=== PATIENT | male | born 1940 | race Hispanic/Latino ===

== ENCOUNTER 2019-02-27 13:37 | Observation (INO) | payer MEDICARE ==
--- NOTE | 2019-02-27 14:59 | Cat Scan Report ---
NONENHANCED CT SCAN OF THE HEAD: INDICATION / CLINICAL INFORMATION: 78 years Male; fall, w/ head laceration, LOC. TECHNIQUE: Routine CT head without contrast. All CT scans at this location are performed using CT dos e reduction for ALARA by means of automated exposure control. COMPARISON: None. FINDINGS: BRAIN / INTRACRANIAL CONTENTS: I do not see intracranial sequela from the trauma. I do not see scalp hematoma air-fluid level in the visualized portions of the paranasal sinuses. No acute hemorrhage, mass effect, midline shift, hydrocephalus, or acute, large territorial infarct. No chronic infarct or focal atrophy. Periventricular low density areas are seen due to microvascular faint angiopathy. Low density areas are also seen in the deep hemispheric white matter due to microv ascular faint angiopathy. CRANIOCERVICAL JUNCTION: No significant abnormality. ORBITS: No significant abnormality of visualized orbits. SINUSES / MASTOIDS: Mucosal thickening is seen posterior inferior cells on the right side ADDITIONAL FINDINGS: None. IMPRESSION: I do not see intracranial sequela from the trauma. Signer Name: Shekhar Roman MD Signed: 02/27/2019 2:55 PM Workstation Name: [id number]
[2019-02-27 15:21] LABS: Basophils # (Auto) 0.1 K/mm3 (0.0-0.1); Basophils % (Auto) 0.6 % (0.0-1.8); Eosinophils # (Auto) 0.2 K/mm3 (0.0-0.4); Eosinophils % (Auto) 2.5 % (0.0-4.3); Hematocrit 38.1 % (35.5-45.6); Hemoglobin 13.2 gm/dl (11.8-15.2); Lymphocytes % (Auto) 10.2 % (13.4-35.0); Mean Corpuscular HGB Conc 35 % (32-34); Mean Corpuscular Volume 93 fl (84-94); Monocytes # (Auto) 0.7 K/mm3 (0.0-0.8); Monocytes % (Auto) 7.6 % (0.0-7.3); Platelet Count 164 K/mm3 (140-440); Red Blood Count 4.09 M/mm3 (3.65-5.03); Red Cell Distribution Width 14.7 % (13.2-15.2)
[2019-02-27 15:32] LABS: INR 0.99 (0.87-1.13); Partial Thromboplastin Time 27.6 Sec. (24.2-36.6)
[2019-02-27 15:40] LABS: Alanine Aminotransferase 19 units/L (7-56); Albumin 4.4 g/dL (3.9-5); BUN/Creatinine Ratio 18; Blood Urea Nitrogen 25 mg/dL (9-20); Calcium 9.5 mg/dL (8.4-10.2); Hemolysis Index 30
[2019-02-27] MEDS ORDERED: SODIUM CHLORIDE 0.9% 500 ML 500 ML IV ONE (15:40)
[2019-02-27] MEDS ORDERED: TETANUS,DIPH,PERTUSS(ACELL) VACCINE 0.5 ML SYRINGE IM ONE (15:40)
[2019-02-27] MEDS ORDERED: BACITRACIN ZINC OINT 28.4 GM TP STA (15:43)
[2019-02-27] MEDS ORDERED: ACETAMINOPHEN 500 MG TAB PO ONE (16:27)
[2019-02-27 16:34] LABS: Bilirubin,Urine NEG (Negative); Blood,Urine NEG (Negative); Color,Urine Yellow (Yellow); Mucus,Urine FEW /HPF; Protein,Urine <15 mg/dL mg/dL (Negative); Urobilinogen,Urine < 2.0 mg/dL (<2.0)
[2019-02-27] MEDS ORDERED: LIDOCAINE-MPF (1%) 10 MG/1 ML VIAL 5 ML INFILTRATI ONE (16:35)
--- NOTE | 2019-02-27 17:11 | Emergency Department Report ---
<INDIRA CONTEH - Last Filed: 02/27/19 17:18> ED General Adult HPI - General Chief complaint: Syncope Stated complaint: SYNCOPY/HYPOTENSION Time Seen by Provider: 02/27/19 14:54 - Related Data Home Medications Medication Instructions Recorded Confirmed Last Taken Aspirin 81 mg PO DAILY 07/05/14 07/16/14 07/16/14 81 mg Chlorthalidone [Thalitone] 12.5 mg PO DAILY 07/05/14 07/16/14 07/16/14 12.5mg Lisinopril 40 mg PO DAILY 07/05/14 07/16/14 07/16/14 40 mg Nitroglycerin [Nitrostat] 0.4 mg SL PRN PRN 07/05/14 07/16/14 Unknown Pravastatin [Pravachol] 80 mg PO DAILY 07/05/14 07/16/14 07/16/14 80 mg Ranolazine [Ranexa] 500 mg PO DAILY 07/05/14 07/16/14 07/16/14 500 mg amLODIPine 10 mg PO DAILY 07/05/14 07/16/14 07/16/14 10 mg carvediloL [Coreg] 25 mg PO BID 07/05/14 07/16/14 07/16/14 25 mg Previous Rx's Medication Instructions Recorded Last Taken Type Prasugrel [Effient] 10 mg PO QDAY #30 tablet 07/06/14 07/16/14 Rx 10 mg Allergies Allergy/AdvReac Type Severity Reaction Status Date / Time No Known Allergies Allergy Verified 07/05/14 06:49 ED Past Medical Hx - Medications Home Medications: Home Medications Medication Instructions Recorded Confirmed Last Taken Type Aspirin 81 mg PO DAILY 07/05/14 07/16/14 07/16/14 History 81 mg Chlorthalidone [Thalitone] 12.5 mg PO DAILY 07/05/14 07/16/14 07/16/14 History 12.5mg Lisinopril 40 mg PO DAILY 07/05/14 07/16/14 07/16/14 History 40 mg Nitroglycerin [Nitrostat] 0.4 mg SL PRN PRN 07/05/14 07/16/14 Unknown History Pravastatin [Pravachol] 80 mg PO DAILY 07/05/14 07/16/14 07/16/14 History 80 mg Ranolazine [Ranexa] 500 mg PO DAILY 07/05/14 07/16/14 07/16/14 History 500 mg amLODIPine 10 mg PO DAILY 07/05/14 07/16/14 07/16/14 History 10 mg carvediloL [Coreg] 25 mg PO BID 07/05/14 07/16/14 07/16/14 History 25 mg Prasugrel [Effient] 10 mg PO QDAY #30 tablet 07/06/14 07/16/14 07/16/14 Rx 10 mg - Laceration /Wound Repair Upper Face Wound Location: face (right eyebrow) Wound Length (cm): 2 Wound's Depth, Shape: into muscle, linear Wound Explored: contaminated Irrigated w/ Saline (ccs): 60 Betadine Prep?: Yes Anesthesia: 1% Lidocaine Volume Anesthetic (ccs): 2 Wound Debrided: minimal Wound Repaired With: sutures Suture Size/Type: 4:0 Number of Sutures: 3 Layer Closure?: No Sterile Dressing Applied?: Yes Progress: Patient tolerated procedure well ED Medical Decision Making - Lab Data Result diagrams: 02/27/19 14:58 02/27/19 14:58 ED Disposition Clinical Impression: Syncope, Facial laceration, Abrasion of left arm, Dehydration Disposition: OP ADMIT IP TO THIS HOSP Condition: Stable Instructions: Syncope (ED) Referrals: PRIMARY CARE, [Referring] - 3-5 Days <LILY HANCOCK - Last Filed: 02/27/19 20:09> ED General Adult HPI - General Source: patient, family, EMS (my EMS disclaimed), RN notes reviewed, old records reviewed Mode of arrival: Ambulatory Limitations: No Limitations - History of Present Illness Initial comments: Cardiology: Dr. Dariusz Lewis Past medical history: Heart disease, status post bypass, high cholesterol and hypertension The patient is a 78-year-old gentleman. The patient is not known to this provider previously. Patient is brought to the hospital with family after unprovoked syncope. Patient states he was in his usual state of health, eating lunch outside, when he lost consciousness and hit his right forehead. Prior to the event, he is not having any new or different symptoms. The patient further states that he has chronic dysphasia, but this is not new, worsening or different. He has mild frontal headache. There is no midline neck pain. He denies DVT and pulmonary embolism risk factors. He's not had an episode of loss of consciousness recently that he can recall otherwise. He is not sure of a previous tetanus vaccinations. Admits to left upper extremity abrasion from a few days ago. There is no complaint of midline neck pain, shortness of breath, abdominal pain, urinary symptoms. He denies hematemesis and bright red blood per rectum. -: Sudden Location: head, left, upper extremity Severity scale (0 -10): 8 Consistency: now resolved Improves with: none Worsens with: none ED Review of Systems ROS: Stated complaint: SYNCOPY/HYPOTENSION Other details as noted in HPI Constitutional: denies: fever Eyes: denies: eye discharge ENT: denies: congestion Respiratory: denies: wheezing Cardiovascular: syncope. denies: chest pain Gastrointestinal: other. denies: abdominal pain, nausea, vomiting, constipation, hematemesis, melena, hematochezia Genitourinary: denies: dysuria Musculoskeletal: myalgia Skin: lesions Neurological: denies: weakness Hematological/Lymphatic: easy bleeding ED Past Medical Hx - Past Medical History Previous Medical History?: Yes Hx Hypertension: Yes (2008) Hx Heart Attack/AMI: Yes Hx Congestive Heart Failure: Yes Hx GERD: Yes Hx Arthritis: Yes Hx Kidney Stones: Yes (surgery ) Hx HIV: No - Surgical History Past Surgical History?: Yes Hx Coronary Stent: Yes (07/12/14) Hx Appendectomy: Yes (1959) - Social History Smoking Status: Never Smoker Substance Use Type: None ED Physical Exam - General Limitations: No Limitations General appearance: alert, in no apparent distress - Head Head exam: Present: normocephalic, other (there is a right-sided 2 cm supraorbital laceration.) - Eye Eye exam: Present: normal appearance, PERRL, EOMI, other (visual acuity intact to finger counting and color perception at a closest). Absent: nystagmus - ENT ENT exam: Present: normal exam, normal orophraynx, mucous membranes moist, normal external ear exam - Neck Neck exam: Present: normal inspection, full ROM. Absent: tenderness, meningismus - Respiratory Respiratory exam: Present: normal lung sounds bilaterally. Absent: respiratory distress - Cardiovascular Cardiovascular Exam: Present: regular rate, normal rhythm, normal heart sounds. Absent: bradycardia, tachycardia, irregular rhythm, systolic murmur, diastolic murmur, rubs, gallop - GI/Abdominal GI/Abdominal exam: Present: soft. Absent: distended, tenderness, guarding, rebound, rigid, pulsatile mass - Rectal Rectal exam: Present: deferred - Extremities Exam Extremities exam: Present: full ROM, pedal edema (1+ edema bilateral lower extremities. There is no palpable cord. There is negative Homans sign.), other (2+ pulses noted in the bilateral upper and lower extremities. The muscular compartments are soft. The pelvis is stable.). Absent: normal inspection (there is a fit superficial left upper extremity forearm abrasion/skin avulsion.), calf tenderness - Back Exam Back exam: Present: normal inspection. Absent: tenderness, CVA tenderness (R), CVA tenderness (L), paraspinal tenderness, vertebral tenderness - Neurological Exam Neurological exam: Present: alert, oriented X3, normal gait, other (there is no facial droop. The tongue is midline. The extraocular movements are intact bilaterally. ). Absent: motor sensory deficit - Skin Skin exam: Present: warm, ecchymosis ED Course Vital Signs 02/27/19 02/27/19 02/27/19 14:10 15:25 15:58 Temperature 97.4 F L Pulse Rate 66 66 65 Respiratory 16 18 16 Rate Blood Pressure 118/59 89/40 94/50 [Left] O2 Sat by Pulse 100 97 100 Oximetry 02/27/19 02/27/19 17:43 18:17 Temperature Pulse Rate 63 67 Respiratory 16 14 Rate Blood Pressure 105/47 104/58 [Left] O2 Sat by Pulse 95 95 Oximetry - Reevaluation(s) Reevaluation #1: 02/27/19 17:43 Differential diagnosis, including but not limited to: Orthostasis, vagal event, structural cardiac disease, superficial laceration, forearm abrasion, pulmonary embolism, dehydration Assessment and plan: 78-year-old gentleman, pleasant, sober, calm and cooperative, no pulmonary embolism or DVT risk factors, low risk by well's criteria, found to be initially hypotensive during my history and physical, blood pressure in the mid 90s, oxygen 94% on room air. He is clinically sober at this time, CT scan of the brain negative for acute disease, laboratory studies reviewed and appreciated, may have mild dehydration, and/or viral depletion. He is on a number of blood pressure medications which have not been recently changed or adjusted. D-dimer elevated, CT scan of the tests ordered, IV fluids ordered, tetanus vaccination ordered, left upper extremity ecchymosis and abrasion was dressed by nursing team, discussed with covering lab courier, Dr. Coe and Nichelle, both of whom work with the patient's primary lab courier, we discussed plan of care for admission, family verbalizes understanding, CT scan of the chest is pending interpretation at this time. Reevaluation #2: 02/27/19 19:49 CT scan chest negative for acute disease. Patient resting comfortably, and in no acute distress. Vital signs improved. He is amenable to hospitalization. The Hospital physician is paged to arrange admission. Reevaluation #3: 02/27/19 20:09 d/w RIGGING WORKER Anthony Brewer who accepts to medical service ED Medical Decision Making - Lab Data Result diagrams: 02/27/19 14:58 02/27/19 14:58 Vital Signs 02/27/19 02/27/19 02/27/19 14:10 15:25 15:58 Temperature 97.4 F L Pulse Rate 66 66 65 Respiratory 16 18 16 Rate Blood Pressure 118/59 89/40 94/50 [Left] O2 Sat by Pulse 100 97 100 Oximetry 02/27/19 17:43 Temperature Pulse Rate 63 Respiratory 16 Rate Blood Pressure 105/47 [Left] O2 Sat by Pulse 95 Oximetry Temp Pulse Resp BP Pulse Ox 97.4 F L 63 16 105/47 95 02/27/19 14:10 02/27/19 17:43 02/27/19 17:43 02/27/19 17:43 02/27/19 17:43 Lab Results 02/27/19 02/27/19 02/27/19 Range/Units 14:58 14:58 14:58 WBC 9.6 (4.5-11.0) K/mm3 RBC 4.09 (3.65-5.03) M/mm3 Hgb 13.2 (11.8-15.2) gm/dl Hct 38.1 (35.5-45.6) % MCV 93 (84-94) fl MCH 32 (28-32) pg MCHC 35 H (32-34) % RDW 14.7 (13.2-15.2) % Plt Count 164 (140-440) K/mm3 Lymph % (Auto) 10.2 L (13.4-35.0) % [place] % (Auto) 7.6 H (0.0-7.3) % Eos % (Auto) 2.5 (0.0-4.3) % Baso % (Auto) 0.6 (0.0-1.8) % Lymph # 1.0 L (1.2-5.4) K/mm3 [place] # 0.7 (0.0-0.8) K/mm3 Eos # 0.2 (0.0-0.4) K/mm3 Baso # 0.1 (0.0-0.1) K/mm3 Seg Neutrophils % 79.1 H (40.0-70.0) % Seg Neutrophils # 7.6 (1.8-7.7) K/mm3 PT 13.0 (12.2-14.9) Sec. INR 0.99 (0.87-1.13) APTT 27.6 (24.2-36.6) Sec. D-Dimer (0-234) ng/mlDDU Sodium 141 (137-145) mmol/L Potassium 4.3 (3.6-5.0) mmol/L Chloride 103.5 (98-107) mmol/L Carbon Dioxide 24 (22-30) mmol/L Anion Gap 18 mmol/L BUN 25 H (9-20) mg/dL Creatinine 1.4 (0.8-1.5) mg/dL Estimated GFR 49 ml/min BUN/Creatinine Ratio 18 % Glucose 129 H (75-100) mg/dL Calcium 9.5 (8.4-10.2) mg/dL Magnesium (1.7-2.3) mg/dL Total Bilirubin 0.40 (0.1-1.2) mg/dL AST 20 (5-40) units/L ALT 19 (7-56) units/L Alkaline Phosphatase 51 (35-129) units/L Total Creatine Kinase (55-170) units/L Troponin T < 0.010 (0.00-0.029) ng/mL Total Protein 6.5 (6.3-8.2) g/dL Albumin 4.4 (3.9-5) g/dL Albumin/Globulin Ratio 2.1 % TSH (0.270-4.200) mlU/mL Urine Color (Yellow) Urine Turbidity (Clear) Urine pH (5.0-7.0) Ur Specific [place] (1.003-1.030) Urine Protein (Negative) mg/dL Urine Glucose (UA) (Negative) mg/dL Urine Ketones (Negative) mg/dL Urine Blood (Negative) Urine Nitrite (Negative) Urine Bilirubin (Negative) Urine Urobilinogen (<2.0) mg/dL Ur Leukocyte Esterase (Negative) Urine WBC (Auto) (0.0-6.0) /HPF Urine RBC (Auto) (0.0-6.0) /HPF Urine Mucus /HPF Salicylates (2.8-20.0) mg/dL Acetaminophen (10.0-30.0) ug/mL 02/27/19 02/27/19 02/27/19 Range/Units 15:53 15:53 15:53 WBC (4.5-11.0) K/mm3 RBC (3.65-5.03) M/mm3 Hgb (11.8-15.2) gm/dl Hct (35.5-45.6) % MCV (84-94) fl MCH (28-32) pg MCHC (32-34) % RDW (13.2-15.2) % Plt Count (140-440) K/mm3 Lymph % (Auto) (13.4-35.0) % [place] % (Auto) (0.0-7.3) % Eos % (Auto) (0.0-4.3) % Baso % (Auto) (0.0-1.8) % Lymph # (1.2-5.4) K/mm3 [place] # (0.0-0.8) K/mm3 Eos # (0.0-0.4) K/mm3 Baso # (0.0-0.1) K/mm3 Seg Neutrophils % (40.0-70.0) % Seg Neutrophils # (1.8-7.7) K/mm3 PT (12.2-14.9) Sec. INR (0.87-1.13) APTT (24.2-36.6) Sec. D-Dimer 326.09 H (0-234) ng/mlDDU Sodium (137-145) mmol/L Potassium (3.6-5.0) mmol/L Chloride (98-107) mmol/L Carbon Dioxide (22-30) mmol/L Anion Gap mmol/L BUN (9-20) mg/dL Creatinine (0.8-1.5) mg/dL Estimated GFR ml/min BUN/Creatinine Ratio % Glucose (75-100) mg/dL Calcium (8.4-10.2) mg/dL Magnesium 1.90 (1.7-2.3) mg/dL Total Bilirubin (0.1-1.2) mg/dL AST (5-40) units/L ALT (7-56) units/L Alkaline Phosphatase (35-129) units/L Total Creatine Kinase 163 (55-170) units/L Troponin T (0.00-0.029) ng/mL Total Protein (6.3-8.2) g/dL Albumin (3.9-5) g/dL Albumin/Globulin Ratio % TSH 3.240 (0.270-4.200) mlU/mL Urine Color (Yellow) Urine Turbidity (Clear) Urine pH (5.0-7.0) Ur Specific [place] (1.003-1.030) Urine Protein (Negative) mg/dL Urine Glucose (UA) (Negative) mg/dL Urine Ketones (Negative) mg/dL Urine Blood (Negative) Urine Nitrite (Negative) Urine Bilirubin (Negative) Urine Urobilinogen (<2.0) mg/dL Ur Leukocyte Esterase (Negative) Urine WBC (Auto) (0.0-6.0) /HPF Urine RBC (Auto) (0.0-6.0) /HPF Urine Mucus /HPF Salicylates (2.8-20.0) mg/dL Acetaminophen (10.0-30.0) ug/mL 02/27/19 02/27/19 02/27/19 Range/Units 15:53 15:53 15:58 WBC (4.5-11.0) K/mm3 RBC (3.65-5.03) M/mm3 Hgb (11.8-15.2) gm/dl Hct (35.5-45.6) % MCV (84-94) fl MCH (28-32) pg MCHC (32-34) % RDW (13.2-15.2) % Plt Count (140-440) K/mm3 Lymph % (Auto) (13.4-35.0) % [place] % (Auto) (0.0-7.3) % Eos % (Auto) (0.0-4.3) % Baso % (Auto) (0.0-1.8) % Lymph # (1.2-5.4) K/mm3 [place] # (0.0-0.8) K/mm3 Eos # (0.0-0.4) K/mm3 Baso # (0.0-0.1) K/mm3 Seg Neutrophils % (40.0-70.0) % Seg Neutrophils # (1.8-7.7) K/mm3 PT (12.2-14.9) Sec. INR (0.87-1.13) APTT (24.2-36.6) Sec. D-Dimer (0-234) ng/mlDDU Sodium (137-145) mmol/L Potassium (3.6-5.0) mmol/L Chloride (98-107) mmol/L Carbon Dioxide (22-30) mmol/L Anion Gap mmol/L BUN (9-20) mg/dL Creatinine (0.8-1.5) mg/dL Estimated GFR ml/min BUN/Creatinine Ratio % Glucose (75-100) mg/dL Calcium (8.4-10.2) mg/dL Magnesium (1.7-2.3) mg/dL Total Bilirubin (0.1-1.2) mg/dL AST (5-40) units/L ALT (7-56) units/L Alkaline Phosphatase (35-129) units/L Total Creatine Kinase (55-170) units/L Troponin T (0.00-0.029) ng/mL Total Protein (6.3-8.2) g/dL Albumin (3.9-5) g/dL Albumin/Globulin Ratio % TSH (0.270-4.200) mlU/mL Urine Color Yellow (Yellow) Urine Turbidity Clear (Clear) Urine pH 5.0 (5.0-7.0) Ur Specific [place] 1.019 (1.003-1.030) Urine Protein <15 mg/dl (Negative) mg/dL Urine Glucose (UA) Neg (Negative) mg/dL Urine Ketones Neg (Negative) mg/dL Urine Blood Neg (Negative) Urine Nitrite Neg (Negative) Urine Bilirubin Neg (Negative) Urine Urobilinogen < 2.0 (<2.0) mg/dL Ur Leukocyte Esterase Neg (Negative) Urine WBC (Auto) 4.0 (0.0-6.0) /HPF Urine RBC (Auto) 2.0 (0.0-6.0) /HPF Urine Mucus Few /HPF Salicylates < 0.3 L (2.8-20.0) mg/dL Acetaminophen < 5.0 L (10.0-30.0) ug/mL - EKG Data -: EKG Interpreted by Me EKG shows normal: sinus rhythm Rate: normal - EKG Data 02/27/19 17:46 The EKG today shows a sinus rhythm, 66 bpm, there is a left axis deviation, left anterior fascicular block, left ventricular hypertrophy, right bundle branch block, prolonged MA interval, there is low voltage, the EKG is not consistent with ST elevation myocardial infarction. This is unchanged from prior EKG from June 2014. Critical care attestation.: If time is entered above; I have spent that time in minutes in the direct care of this critically ill patient, excluding procedure time. ED Disposition Is pt being admited?: Yes
[2019-02-27] MEDS ORDERED: SODIUM CHLORIDE 0.9% 1000 ML 1,000 ML ONE (17:47)
[2019-02-27] MEDS: SODIUM CHLORIDE 0.9% 500 ML 500 ML IV ONE ×2 (17:49→17:56)
--- NOTE | 2019-02-27 19:19 | Cat Scan Report ---
CT ANGIO CHEST INDICATION / CLINICAL INFORMATION: MAIN: syncope + d dimer hypoxia- 60ml Omni 350. TECHNIQUE: Axial CT images were obtained after injection of IV contrast using CTA protocol. 3 plane MIP / 3D rec onstructions were produced. All CT scans at this location are performed using CT dose reduction for A ZABRINA by means of automated exposure control. COMPARISON: None available. FINDINGS: Following the injection of contrast, no filling defects are seen in the main pulmonary arteries or th eir branches. 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 No significant parenchymal abno rmality is seen in the lungs. No enlarged mediastinal or hilar lymph nodes are identified. A small hi atal hernia is present. Other than degenerative change in the spine, no significant skeletal abnormal ity is seen IMPRESSION: 1. No evidence of pulmonary embolus 2. Eventration of the left hemidiaphragm 3. Small hiatal hernia Signer Name: Rico Staples MD FACR Signed: 02/27/2019 7:14 PM Workstation Name: [id number]
[2019-02-27] MEDS ORDERED: MAGNESIUM HYDROXIDE (MOM) ORAL LIQD UDC PO PRN (20:04)
[2019-02-27] MEDS ORDERED: PROMETHAZINE 25 MG RECT SUPP PR PRN (20:04)
[2019-02-27] MEDS ORDERED: METOCLOPRAMIDE 10 MG TAB PO PRN (20:04)
[2019-02-27] MEDS ORDERED: ACETAMINOPHEN 325 MG TAB PO PRN (20:04)
[2019-02-27] MEDS ORDERED: ONDANSETRON 4 MG/2 ML INJ IV PRN (20:04)
--- NOTE | 2019-02-27 20:27 | History and Physical Report ---
<JOSE GONSALEZ - Last Filed: 02/27/19 20:28> History of Present Illness Date of examination: 02/27/19 Date of admission: 02/27/2019 Chief complaint: Syncope History of present illness: 78-year-old male with history of hypertension, CAD S/P stent 2, [place], CABG, and HLD who presents to [facility] ED via EMS with complaints of syncopal episode 1. Pt states that he was sitting at the food court in [facility] having lunch with his , when he stood up and felt weird. Pt recalls waking up on the floor with EMS at his side. He admits to loss of consciousness. Patient hit his right forehead which required him to get sutures in the ED. Patient admits to being compliant with medications. 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 Dariusz Lewis with [facility]. Admits: Mild frontal headache, mild dyspnea with exertion Denies: n/v, fever, neck pain or stiffness, or recent falls Past History Past Medical History: arthritis, COPD, GERD, heart failure (s/p CABG), hypertens ion, hyperlipidemia Past Surgical History: appendectomy (1959), CABG, Other (Kidney stone surgery, stent x2 (2015)) Social history: , lives with family Family history: no significant family history Medications and Allergies Allergies Allergy/AdvReac Type Severity Reaction Status Date / Time No Known Allergies Allergy Verified 07/05/14 06:49 Home Medications Medication Instructions Recorded Confirmed Last Taken Type Aspirin 81 mg PO DAILY 07/05/14 07/16/14 07/16/14 History 81 mg Chlorthalidone [Thalitone] 12.5 mg PO DAILY 07/05/14 07/16/14 07/16/14 History 12.5mg Lisinopril 40 mg PO DAILY 07/05/14 07/16/14 07/16/14 History 40 mg Nitroglycerin [Nitrostat] 0.4 mg SL PRN PRN 07/05/14 07/16/14 Unknown History Pravastatin [Pravachol] 80 mg PO DAILY 07/05/14 07/16/14 07/16/14 History 80 mg Ranolazine [Ranexa] 500 mg PO DAILY 07/05/14 07/16/14 07/16/14 History 500 mg amLODIPine 10 mg PO DAILY 07/05/14 07/16/14 07/16/14 History 10 mg carvediloL [Coreg] 25 mg PO BID 07/05/14 07/16/14 07/16/14 History 25 mg Prasugrel [Effient] 10 mg PO QDAY #30 tablet 07/06/14 07/16/14 07/16/14 Rx 10 mg Active Meds: Active Medications Acetaminophen (Tylenol) 650 mg PO Q4H PRN PRN Reason: Pain, Mild (1-3) Aspirin (Baby Aspirin) 81 mg PO QDAY [facility] Bisacodyl (Dulcolax) [address] QDAY PRN PRN Reason: Constipation Docusate Sodium (Colace) 100 mg PO BID [facility] Heparin Sodium (Porcine) (Heparin) 5,000 unit SUB-Q Q12HR [facility] Sodium Chloride (Nacl 0.45% 1000 Ml) 1,000 mls @ 50 mls/hr IV DIRECT [facility] Magnesium Hydroxide (Milk Of Magnesia) 30 ml PO Q4H PRN PRN Reason: Constipation Metoclopramide HCl (Reglan) 10 mg PO Q6H PRN PRN Reason: Nausea And Vomiting Ondansetron HCl (Zofran) 4 mg IV Q8H PRN PRN Reason: Nausea And Vomiting Pravastatin Sodium (Pravachol) 40 mg PO QHS [facility] Promethazine HCl (Phenergan) [address] Q6H PRN PRN Reason: Nausea And Vomiting Sodium Chloride (Sodium Chloride Flush Syringe 10 Ml) 10 ml IV PRN PRN PRN Reason: LINE FLUSH Review of Systems All systems: negative Musculoskeletal: myalgias Neurological: syncope, headaches (mild frontal headache) Exam - Physical Exam Narrative exam: General appearance: Present: No acute distress, alert and orientedx3, developed, well-nourished, older adult male - EENT Eyes: Present: PERRL, EOM intact ENT: hearing intact, normal dentition - Neck Neck: Present: supple, normal ROM - Respiratory Respiratory effort: Non-labored Respiratory: bilateral: CTA with diminished bases bilaterally - Cardiovascular Heart rate:66 (bpm) Rhythm:SR, right bundle branch block Heart Sounds: Present: S1, S2. - Extremities Extremities: no ischemia, pulses intact, bilateral trace pedal edema - Peripheral Assessment Peripheral Pulses: within normal limits - Abdominal General gastrointestinal: soft, non-tender, normal bowel sounds, - Integumentary Integumentary: Present: warm, dry, laceration s/p sutures to right eyebrow, left arm abrasion dressed with gauze and tape - Musculoskeletal Musculoskeletal: able to move all extremities -Neurological Neurological: CN II-XII grossly intact - Psychiatric Psychiatric: cooperative - Constitutional Vitals: Temp Pulse Resp BP Pulse Ox 97.4 F L 67 14 104/58 95 02/27/19 14:10 02/27/19 18:17 02/27/19 18:17 02/27/19 18:17 02/27/19 18:17 Results - Labs CBC & Chem 7: 02/27/19 14:58 02/27/19 14:58 Labs: Laboratory Last Values WBC 9.6 K/mm3 (4.5-11.0) 02/27/19 14:58 RBC 4.09 M/mm3 (3.65-5.03) 02/27/19 14:58 Hgb 13.2 gm/dl (11.8-15.2) 02/27/19 14:58 Hct 38.1 % (35.5-45.6) 02/27/19 14:58 MCV 93 fl (84-94) 02/27/19 14:58 MCH 32 pg (28-32) 02/27/19 14:58 MCHC 35 % (32-34) H 02/27/19 14:58 RDW 14.7 % (13.2-15.2) 02/27/19 14:58 Plt Count 164 K/mm3 (140-440) 02/27/19 14:58 Lymph % (Auto) 10.2 % (13.4-35.0) L 02/27/19 14:58 [place] % (Auto) 7.6 % (0.0-7.3) H 02/27/19 14:58 Eos % (Auto) 2.5 % (0.0-4.3) 02/27/19 14:58 Baso % (Auto) 0.6 % (0.0-1.8) 02/27/19 14:58 Lymph # 1.0 K/mm3 (1.2-5.4) L 02/27/19 14:58 [place] # 0.7 K/mm3 (0.0-0.8) 02/27/19 14:58 Eos # 0.2 K/mm3 (0.0-0.4) 02/27/19 14:58 Baso # 0.1 K/mm3 (0.0-0.1) 02/27/19 14:58 Seg Neutrophils % 79.1 % (40.0-70.0) H 02/27/19 14:58 Seg Neutrophils # 7.6 K/mm3 (1.8-7.7) 02/27/19 14:58 PT 13.0 Sec. (12.2-14.9) 02/27/19 14:58 INR 0.99 (0.87-1.13) 02/27/19 14:58 APTT 27.6 Sec. (24.2-36.6) 02/27/19 14:58 D-Dimer 326.09 ng/mlDDU (0-234) H 02/27/19 15:53 Sodium 141 mmol/L (137-145) 02/27/19 14:58 Potassium 4.3 mmol/L (3.6-5.0) 02/27/19 14:58 Chloride 103.5 mmol/L (98-107) 02/27/19 14:58 Carbon Dioxide 24 mmol/L (22-30) 02/27/19 14:58 Anion Gap 18 mmol/L 02/27/19 14:58 BUN 25 mg/dL (9-20) H 02/27/19 14:58 Creatinine 1.4 mg/dL (0.8-1.5) 02/27/19 14:58 Estimated GFR 49 ml/min 02/27/19 14:58 BUN/Creatinine Ratio 18 % 02/27/19 14:58 Glucose 129 mg/dL (75-100) H 02/27/19 14:58 Calcium 9.5 mg/dL (8.4-10.2) 02/27/19 14:58 Magnesium 1.90 mg/dL (1.7-2.3) 02/27/19 15:53 Total Bilirubin 0.40 mg/dL (0.1-1.2) 02/27/19 14:58 AST 20 units/L (5-40) 02/27/19 14:58 ALT 19 units/L (7-56) 02/27/19 14:58 Alkaline Phosphatase 51 units/L (35-129) 02/27/19 14:58 Total Creatine Kinase 163 units/L (55-170) 02/27/19 15:53 Troponin T < 0.010 ng/mL (0.00-0.029) 02/27/19 14:58 Total Protein 6.5 g/dL (6.3-8.2) 02/27/19 14:58 Albumin 4.4 g/dL (3.9-5) 02/27/19 14:58 Albumin/Globulin Ratio 2.1 % 02/27/19 14:58 TSH 3.240 mlU/mL (0.270-4.200) 02/27/19 15:53 Urine Color Yellow (Yellow) 02/27/19 15:58 Urine Turbidity Clear (Clear) 02/27/19 15:58 Urine pH 5.0 (5.0-7.0) 02/27/19 15:58 Ur Specific [place] 1.019 (1.003-1.030) 02/27/19 15:58 Urine Protein <15 mg/dl mg/dL (Negative) 02/27/19 15:58 Urine Glucose (UA) Neg mg/dL (Negative) 02/27/19 15:58 Urine Ketones Neg mg/dL (Negative) 02/27/19 15:58 Urine Blood Neg (Negative) 02/27/19 15:58 Urine Nitrite Neg (Negative) 02/27/19 15:58 Urine Bilirubin Neg (Negative) 02/27/19 15:58 Urine Urobilinogen < 2.0 mg/dL (<2.0) 02/27/19 15:58 Ur Leukocyte Esterase Neg (Negative) 02/27/19 15:58 Urine WBC (Auto) 4.0 /HPF (0.0-6.0) 02/27/19 15:58 Urine RBC (Auto) 2.0 /HPF (0.0-6.0) 02/27/19 15:58 Urine Mucus Few /HPF 02/27/19 15:58 Salicylates < 0.3 mg/dL (2.8-20.0) L 02/27/19 15:53 Acetaminophen < 5.0 ug/mL (10.0-30.0) L 02/27/19 15:53 - Imaging and Cardiology Imaging and Cardiology: CT Head: FINDINGS: BRAIN / INTRACRANIAL CONTENTS: I do not see intracranial sequela from the trauma. I do not see scalp hematoma air-fluid level in the visualized portions of the paranasal sinuses. No acute hemorrhage, mass effect, midline shift, hydrocephalus, or acute, large territorial infarct. No chronic infarct or focal atrophy. Periventricular low density areas are seen due to microvascular faint angiopathy. Low density areas are also seen in the deep hemispheric white matter due to microvascular faint angiopathy. CRANIOCERVICAL JUNCTION: No significant abnormality. ORBITS: No significant abnormality of visualized orbits. SINUSES / MASTOIDS: Mucosal thickening is seen posterior inferior cells on the right side ADDITIONAL FINDINGS: None. IMPRESSION: I do not see intracranial sequela from the trauma. CTA Angio Chest: FINDINGS: Following the injection of contrast, no filling defects are seen in the main pulmonary arteries or their branches. 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 No significant parenchymal abnormality is seen in the lungs. No enlarged mediastinal or hilar lymph nodes are identified. A small hiatal hernia is present. Other than degenerative change in the spine, no significant skeletal abnormality is seen IMPRESSION: 1. No evidence of pulmonary embolus 2. Eventration of the left hemidiaphragm 3. Small hiatal hernia Assessment and Plan Assessment and plan: 78-year-old male with history of hypertension, CAD S/P stent 2, [place], CABG, and HLD who presents to [facility] ED via EMS with complaints of syncopal episode 1. Syncope -CT Head negative -Bilateral carotid Doppler and Echo pending -Neuro Checks -PT/OT eval pending -Lipid panel pending -On ASA and statin -Neurology consulted -Cardiology consulted Hypotension -Likely due to dehydration -BUN 25, CR 1.4 -BP on presentation 89/40 -Responsive to fluid resuscitation -On IVF 1/2NS -Hx HTN -Continue to monitor BP -Hold all antihypertensive meds for now Elevated D-Dimer -326.09 -CT angio Chest negative for PE Hx CAD -S/p stent x2 (2014) Hx CABG -Follows Dr. Dariusz Lewis with [facility] as outpatient -Consult placed to [facility] DVT PPX -on Heparin Advance Directives: No VTE prophylaxis?: Chemical Plan of care discussed with patient/family: Yes <DIANA LEWIS - Last Filed: 02/28/19 00:49> History of Present Illness Date of admission: 02/27/19 20:04 Medications and Allergies Active Meds: Active Medications Acetaminophen (Tylenol) 650 mg PO Q4H PRN PRN Reason: Pain, Mild (1-3) Aspirin (Baby Aspirin) 81 mg PO QDAY [facility] Bisacodyl (Dulcolax) [address] QDAY PRN PRN Reason: Constipation Docusate Sodium (Colace) 100 mg PO BID [facility] Heparin Sodium (Porcine) (Heparin) 5,000 unit SUB-Q Q12HR [facility] Sodium Chloride (Nacl 0.45% 1000 Ml) 1,000 mls @ 50 mls/hr IV DIRECT [facility] Magnesium Hydroxide (Milk Of Magnesia) 30 ml PO Q4H PRN PRN Reason: Constipation Metoclopramide HCl (Reglan) 10 mg PO Q6H PRN PRN Reason: Nausea And Vomiting Ondansetron HCl (Zofran) 4 mg IV Q8H PRN PRN Reason: Nausea And Vomiting Pravastatin Sodium (Pravachol) 40 mg PO QHS [facility] Promethazine HCl (Phenergan) [address] Q6H PRN PRN Reason: Nausea And Vomiting Sodium Chloride (Sodium Chloride Flush Syringe 10 Ml) 10 ml IV PRN PRN PRN Reason: LINE FLUSH Exam - Constitutional Vitals: Temp Pulse Resp BP Pulse Ox 97.4 F L 64 16 113/77 100 02/27/19 14:10 02/27/19 21:05 02/27/19 21:05 02/27/19 21:05 02/27/19 21:05 Results - Labs CBC & Chem 7: 02/27/19 14:58 02/27/19 14:58 Labs: Laboratory Last Values WBC 9.6 K/mm3 (4.5-11.0) 02/27/19 14:58 RBC 4.09 M/mm3 (3.65-5.03) 02/27/19 14:58 Hgb 13.2 gm/dl (11.8-15.2) 02/27/19 14:58 Hct 38.1 % (35.5-45.6) 02/27/19 14:58 MCV 93 fl (84-94) 02/27/19 14:58 MCH 32 pg (28-32) 02/27/19 14:58 MCHC 35 % (32-34) H 02/27/19 14:58 RDW 14.7 % (13.2-15.2) 02/27/19 14:58 Plt Count 164 K/mm3 (140-440) 02/27/19 14:58 Lymph % (Auto) 10.2 % (13.4-35.0) L 02/27/19 14:58 [place] % (Auto) 7.6 % (0.0-7.3) H 02/27/19 14:58 Eos % (Auto) 2.5 % (0.0-4.3) 02/27/19 14:58 Baso % (Auto) 0.6 % (0.0-1.8) 02/27/19 14:58 Lymph # 1.0 K/mm3 (1.2-5.4) L 02/27/19 14:58 [place] # 0.7 K/mm3 (0.0-0.8) 02/27/19 14:58 Eos # 0.2 K/mm3 (0.0-0.4) 02/27/19 14:58 Baso # 0.1 K/mm3 (0.0-0.1) 02/27/19 14:58 Seg Neutrophils % 79.1 % (40.0-70.0) H 02/27/19 14:58 Seg Neutrophils # 7.6 K/mm3 (1.8-7.7) 02/27/19 14:58 PT 13.0 Sec. (12.2-14.9) 02/27/19 14:58 INR 0.99 (0.87-1.13) 02/27/19 14:58 APTT 27.6 Sec. (24.2-36.6) 02/27/19 14:58 D-Dimer 326.09 ng/mlDDU (0-234) H 02/27/19 15:53 Sodium 141 mmol/L (137-145) 02/27/19 14:58 Potassium 4.3 mmol/L (3.6-5.0) 02/27/19 14:58 Chloride 103.5 mmol/L (98-107) 02/27/19 14:58 Carbon Dioxide 24 mmol/L (22-30) 02/27/19 14:58 Anion Gap 18 mmol/L 02/27/19 14:58 BUN 25 mg/dL (9-20) H 02/27/19 14:58 Creatinine 1.4 mg/dL (0.8-1.5) 02/27/19 14:58 Estimated GFR 49 ml/min 02/27/19 14:58 BUN/Creatinine Ratio 18 % 02/27/19 14:58 Glucose 129 mg/dL (75-100) H 02/27/19 14:58 Calcium 9.5 mg/dL (8.4-10.2) 02/27/19 14:58 Magnesium 1.90 mg/dL (1.7-2.3) 02/27/19 15:53 Total Bilirubin 0.40 mg/dL (0.1-1.2) 02/27/19 14:58 AST 20 units/L (5-40) 02/27/19 14:58 ALT 19 units/L (7-56) 02/27/19 14:58 Alkaline Phosphatase 51 units/L (35-129) 02/27/19 14:58 Total Creatine Kinase 163 units/L (55-170) 02/27/19 15:53 Troponin T < 0.010 ng/mL (0.00-0.029) 02/27/19 14:58 Total Protein 6.5 g/dL (6.3-8.2) 02/27/19 14:58 Albumin 4.4 g/dL (3.9-5) 02/27/19 14:58 Albumin/Globulin Ratio 2.1 % 02/27/19 14:58 TSH 3.240 mlU/mL (0.270-4.200) 02/27/19 15:53 Urine Color Yellow (Yellow) 02/27/19 15:58 Urine Turbidity Clear (Clear) 02/27/19 15:58 Urine pH 5.0 (5.0-7.0) 02/27/19 15:58 Ur Specific [place] 1.019 (1.003-1.030) 02/27/19 15:58 Urine Protein <15 mg/dl mg/dL (Negative) 02/27/19 15:58 Urine Glucose (UA) Neg mg/dL (Negative) 02/27/19 15:58 Urine Ketones Neg mg/dL (Negative) 02/27/19 15:58 Urine Blood Neg (Negative) 02/27/19 15:58 Urine Nitrite Neg (Negative) 02/27/19 15:58 Urine Bilirubin Neg (Negative) 02/27/19 15:58 Urine Urobilinogen < 2.0 mg/dL (<2.0) 02/27/19 15:58 Ur Leukocyte Esterase Neg (Negative) 02/27/19 15:58 Urine WBC (Auto) 4.0 /HPF (0.0-6.0) 02/27/19 15:58 Urine RBC (Auto) 2.0 /HPF (0.0-6.0) 02/27/19 15:58 Urine Mucus Few /HPF 02/27/19 15:58 Salicylates < 0.3 mg/dL (2.8-20.0) L 02/27/19 15:53 Acetaminophen < 5.0 ug/mL (10.0-30.0) L 02/27/19 15:53 Assessment and Plan Assessment and plan: 78 -year-old man history of hypertension, coronary artery disease, CHF, hyperlipidemia comes emergency room history of hypertension, coronary artery disease, CHF, hyperlipidemia comes to the emergency room for evaluation of syncope. The patient said he was eating lunch when he tried to get up and syncopized. No warning symptoms. He sustained a laceration over the right eye. Agree with workup as stated above, inaddition, check cardiac enzymes
[2019-02-27] MEDS ORDERED: SODIUM CHLORIDE 0.45% 1000 ML 1,000 ML IV SCH (21:00)
[2019-02-27] MEDS ORDERED: PRAVASTATIN 40 MG TAB PO SCH (22:00)
[2019-02-27] MEDS ORDERED: TEMAZEPAM 15 MG CAP PO ONE (23:15)
[2019-02-27] MEDS: DOCUSATE SODIUM 100 MG CAP PO SCH (23:24)
[2019-02-27] MEDS: HEPARIN 5,000 UNIT/1 ML VIAL SUB-Q SCH (23:24)
[2019-02-28 02:50] LABS: Creatine Kinase MB 3.3 ng/mL (0.0-4.0)
[2019-02-28 03:20] LABS: Chol/HDL Ratio 3.56 %
[2019-02-28 08:41] LABS: Creatine Kinase MB 3.1 ng/mL (0.0-4.0)
--- NOTE | 2019-02-28 09:46 | Vascular Lab Report ---
TECHNICAL DATA: Imaging was performed from the base of the neck to the skull base using duplex sonography and color-f low imaging with emphasis on the carotid and vertebral arterial systems. RIGHT CAROTID ARTERY: The right internal carotid artery, right external carotid, and right common carotid artery all well i halina and patent. Mild atherosclerotic plaque present at the carotid bifurcation. Right common carotid artery peak systolic velocity 104 cm/sec Right internal carotid artery peak systolic velocity 86 cm/sec Right internal carotid artery end diastolic velocity 25 cm/sec Right internal carotid artery/right common carotid artery ratio 0.8 Vertebral artery flow is antegrade. LEFT CAROTID ARTERY The left internal carotid artery, left external carotid, and left common carotid artery all well imag ed and patent. Mild atherosclerotic plaque present at the carotid bifurcation. Left common carotid artery peak systolic velocity 105 cm/sec Left internal carotid artery peak systolic velocity 106 cm/sec Left internal carotid artery end diastolic velocity 30 cm/sec Left internal carotid artery/right common carotid artery ratio 1 Normal antegrade flow of the vertebral arteries. IMPRESSION: 1. Sonographic NASCET Index This study proposed the incorporation of distal ICA flow velocity information on the conventional car otid Doppler study improving the diagnostic accuracy of PSV 1. Left and right internal carotid arteries demonstrate <15% stenosis: * deceleration spectral broadening with a peak systolic velocity (PSV) <125 cm/s 2. Normal common carotid arteries. 3. Normal external carotid arteries. 4. Antegrade flow both vertebral arteries. Sonographic NASCET Index This study proposed the incorporation of distal ICA flow velocity information on the conventional car otid Doppler study improving the diagnostic accuracy of PSV 1. * <15% stenosis: * deceleration spectral broadening with a peak systolic velocity (PSV) <125 cm/s * 16-49% stenosis: * pansystolic spectral broadening with a PSV <125 cm/s * 50-69% stenosis: * pansystolic spectral broadening with a PSV of >125 cm/s * and * end diastolic velocity (EDV) <110 cm/s or ICA/CCA PSV ratio >2 but <4 * 70-79% stenosis: * pansystolic spectral broadening with PSV >270 cm/s * or * EDV >110 cm/s * or * ICA/CCA PSV ratio >4 * 80-99% stenosis: EDV >140 cm/s * complete occlusion: no flow; terminal thump Signer Name: Jules Saul MD Signed: 02/28/2019 9:41 AM Workstation Name: [id number]
[2019-02-28] MEDS ORDERED: ASPIRIN 81 MG TAB CHEW PO SCH (10:00)
[2019-02-28] MEDS: HEPARIN 5,000 UNIT/1 ML VIAL SUB-Q SCH (10:04)
[2019-02-28] MEDS: DOCUSATE SODIUM 100 MG CAP PO SCH (10:05)
[2019-02-28 10:19] VITALS: BP 124/70
--- NOTE | 2019-02-28 10:36 | Consultation ---
History of Present Illness Consult date: 02/28/19 Reason for Consult: syncope Chief complaint: Pt. passed out on standing up History of present illness: According to pt. 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 echo is pending he is complain of left thumb pain had stitches on right fore head Past History Past Medical History: arthritis, COPD, GERD, heart failure (s/p CABG), hypertension, hyperlipidemia Past Surgical History: appendectomy (1959), CABG, Other (Kidney stone surgery, stent x2 (2014)) Social history: , lives with family Family history: no significant family history Medications and Allergies Allergies Allergy/AdvReac Type Severity Reaction Status Date / Time No Known Allergies Allergy Verified 07/05/14 06:49 Home Medications Medication Instructions Recorded Confirmed Last Taken Type Aspirin 81 mg PO DAILY 07/05/14 07/16/14 07/16/14 History 81 mg Chlorthalidone [Thalitone] 12.5 mg PO DAILY 07/05/14 07/16/14 07/16/14 History 12.5mg Lisinopril 40 mg PO DAILY 07/05/14 07/16/14 07/16/14 History 40 mg Nitroglycerin [Nitrostat] 0.4 mg SL PRN PRN 07/05/14 07/16/14 Unknown History Pravastatin [Pravachol] 80 mg PO DAILY 07/05/14 07/16/14 07/16/14 History 80 mg Ranolazine [Ranexa] 500 mg PO DAILY 07/05/14 07/16/14 07/16/14 History 500 mg amLODIPine 10 mg PO DAILY 07/05/14 07/16/14 07/16/14 History 10 mg carvediloL [Coreg] 25 mg PO BID 07/05/14 07/16/14 07/16/14 History 25 mg Prasugrel [Effient] 10 mg PO QDAY #30 tablet 07/06/14 07/16/14 07/16/14 Rx 10 mg Active Meds: Active Medications Acetaminophen (Tylenol) 650 mg PO Q4H PRN PRN Reason: Pain, Mild (1-3) Last Admin: 02/27/19 23:23 Dose: 650 mg Documented by: Aspirin (Baby Aspirin) 81 mg PO QDAY [facility] Last Admin: 02/28/19 10:05 Dose: 81 mg Documented by: Bisacodyl (Dulcolax) 10 mg NM QDAY PRN PRN Reason: Constipation Docusate Sodium (Colace) 100 mg PO BID [facility] Last Admin: 02/28/19 10:05 Dose: 100 mg Documented by: Heparin Sodium (Porcine) (Heparin) 5,000 unit SUB-Q Q12HR [facility] Last Admin: 02/28/19 10:04 Dose: 5,000 unit Documented by: Sodium Chloride (Nacl 0.45% 1000 Ml) 1,000 mls @ 50 mls/hr IV DIRECT [facility] Last Admin: 02/28/19 04:35 Dose: 50 mls/hr Documented by: Magnesium Hydroxide (Milk Of Magnesia) 30 ml PO Q4H PRN PRN Reason: Constipation Metoclopramide HCl (Reglan) 10 mg PO Q6H PRN PRN Reason: Nausea And Vomiting Ondansetron HCl (Zofran) 4 mg IV Q8H PRN PRN Reason: Nausea And Vomiting Pravastatin Sodium (Pravachol) 40 mg PO QHS [facility] Last Admin: 02/27/19 23:24 Dose: 40 mg Documented by: Promethazine HCl (Phenergan) 25 mg NM Q6H PRN PRN Reason: Nausea And Vomiting Sodium Chloride (Sodium Chloride Flush Syringe 10 Ml) 10 ml IV PRN PRN PRN Reason: LINE FLUSH Review of Systems All systems: negative Cardiovascular: lightheadedness Genitourinary Male: urinary frequency Physical Examination - Vital Signs Vital Signs: Vital Signs Temp Pulse Resp BP Pulse Ox 97.4 F L 66 16 118/59 100 02/27/19 14:10 12/02/19 14:10 02/27/19 14:10 02/27/19 14:10 02/27/19 14:10 - Constitutional General appearance: comfortable - EENT EENT: Present: ATNC - Respiratory Respiratory: Present: chest non-tender - Cardiovascular Cardiovascular: Present: regular rate, normal S1, normal S2, no murmurs Extremities: Present: no peripheral edema bilatateraly, no clubbing, cyanosis - Gastrointestinal Gastrointestinal: Present: normoactive bowel sounds - Integumentary Integumentary: Present: normal - Neurologic Cranial nerve examination: anosmic, PERRL, EOMI Speech examination: intact Sensorimotor examination: intact Detailed motor examination: grossly full strength in Detailed sensory examination: intact Reflex and gait examination: intact - Psychiatric Psychiatric: Present: mood/affect appropriate - Level of Consciousness 1a. Level of Consciousness: alert/keenly responsive - LOC Questions 1b. LOC Questions: answers both correctly - LOC Command 1c. LOC Commands: performs tasks correctly - Best Gaze 2. Best Gaze: normal - Visual 3. Visual: no visual loss - Facial Palsy 4. Facial Palsy: normal symmetrical movement - Motor Arm 5a. Motor Arm Left: no drift 5b. Motor Arm Right: no drift - Motor Leg 6a. Motor Leg Left: no drift 6b. Motor Leg Right: no drift - Limb Ataxia 7. Limb Ataxia: absent - Sensory 8. Sensory: normal - Best Language 9. Best Language: no aphasia - Dysarthria 10. Dysarthria: normal - Extinction and Inattention 11. Extinction/Inattention: no abnormality - Scoring Total Score: 0 Stroke Severity: No Stroke Symptoms Results - Laboratory Findings CBC and BMP: 02/27/19 14:58 02/27/19 14:58 Abnormal Lab Findings: Abnormal Labs 02/27/19 02/27/19 02/27/19 14:58 14:58 15:53 MCHC 35 H Lymph % (Auto) 10.2 L [place] % (Auto) 7.6 H Lymph # 1.0 L Seg Neutrophils % 79.1 H D-Dimer 326.09 H BUN 25 H Glucose 129 H Total Creatine Kinase Triglycerides HDL Cholesterol Salicylates Acetaminophen 02/27/19 02/27/19 02/28/19 15:53 15:53 02:09 MCHC Lymph % (Auto) [place] % (Auto) Lymph # Seg Neutrophils % D-Dimer BUN Glucose Total Creatine Kinase Triglycerides 229 H HDL Cholesterol 32 L Salicylates < 0.3 L Acetaminophen < 5.0 L 02/28/19 02/28/19 02:09 08:03 MCHC Lymph % (Auto) [place] % (Auto) Lymph # Seg Neutrophils % D-Dimer BUN Glucose Total Creatine Kinase 265 H 265 H Triglycerides HDL Cholesterol Salicylates Acetaminophen Assessment and Plan Impression 1-This is 78 ys old male presented with momentarily LOC on standing most likely is related to change in BP / dehydration 2- Hx of HTN,HLP,CVD with X stent, CABG ,[place] 3- 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 4- Check echocardiogram 5- MRI brain 6- Xray left thumb 7- DVT precaution 8- Keep ASA 81 mg daily 9- Lipitor 80 mg daily finding D/W pt. and - Patient Problems (1) Abrasion of left arm Current Visit: Yes Status: Acute (2) Dehydration Current Visit: Yes Status: Acute (3) Facial laceration Current Visit: Yes Status: Acute (4) Syncope Current Visit: Yes Status: Acute
--- NOTE | 2019-02-28 11:36 | XRay Report ---
LEFT FINGERS, 3 VIEWS INDICATION: left thumb base swelling r/o fracture. COMPARISON: None. IMPRESSION: Osteopenia is evident. There is a very subtle nondisplaced fracture at the lateral base of the left thumb involving the proximal phalanx. No calcified callus is identified. The remaining b milagros structures are intact. Mild diffuse degenerative changes are noted. Signer Name: Arnoldo Chavis Jr, MD Signed: 02/28/2019 11:32 AM Workstation Name: [id number]
[2019-02-28] MEDS ORDERED: PRASUGREL 10 MG TAB PO SCH (12:00)
[2019-02-28] MEDS ORDERED: RANOLAZINE ER 500 MG TAB 12HR PO SCH (12:00)
--- NOTE | 2019-02-28 13:38 | Consultation ---
History of Present Illness Consult date: 02/28/19 Consult reason: syncope History of present illness: This is a 78-year old male known to [facility] and follows on a routine basis with Dr Lewis. He has a history of coronary artery disease with prior bypass grafting and multiple PCIs. His latest cardiac workup with a stress thallium test done late July, reports a normal perfusion scan. Patient was brought in with syncope as witnessed by his . It's reported the patient went to stand up then suddenly became unresponsive. He fell forward and hit his forehead resulting in a laceration of the right eyebrow. Patient denies chest pain, palpitations, unusual shortness of breath and dizziness just prior to passing out. Patient denies a history of seizure disorder. Workup in the emergency department with a head CT scan reports no acute intracranial abnormality. A chest CT scan showed no evidence of pulmonary embolism. An ECG is sinus rhythm with a right bundle branch block. No significant change in comparison to prior. Past History Past Medical History: arthritis, COPD, GERD, hypertension, hyperlipidemia Past Surgical History: appendectomy (1959), CABG, Other (Kidney stone surgery, stent x2 (2014)) Social history: , lives with family Family history: no significant family history Medications and Allergies Allergies Allergy/AdvReac Type Severity Reaction Status Date / Time No Known Allergies Allergy Verified 07/05/14 06:49 Home Medications Medication Instructions Recorded Confirmed Last Taken Type Aspirin 81 mg PO DAILY 07/05/14 07/16/14 07/16/14 History 81 mg Chlorthalidone [Thalitone] 12.5 mg PO DAILY 07/05/14 07/16/14 07/16/14 History 12.5mg Lisinopril 40 mg PO DAILY 07/05/14 07/16/14 07/16/14 History 40 mg Nitroglycerin [Nitrostat] 0.4 mg SL PRN PRN 07/05/14 07/16/14 Unknown History Pravastatin [Pravachol] 80 mg PO DAILY 07/05/14 07/16/14 07/16/14 History 80 mg Ranolazine [Ranexa] 500 mg PO DAILY 07/05/14 07/16/14 07/16/14 History 500 mg amLODIPine 10 mg PO DAILY 07/05/14 07/16/14 07/16/14 History 10 mg carvediloL [Coreg] 25 mg PO BID 07/05/14 07/16/14 07/16/14 History 25 mg Prasugrel [Effient] 10 mg PO QDAY #30 tablet 07/06/14 07/16/14 07/16/14 Rx 10 mg Active Meds: Active Medications Acetaminophen (Tylenol) 650 mg PO Q4H PRN PRN Reason: Pain, Mild (1-3) Last Admin: 02/27/19 23:23 Dose: 650 mg Documented by: Aspirin (Baby Aspirin) 81 mg PO QDAY [facility] Last Admin: 02/28/19 10:05 Dose: 81 mg Documented by: Bisacodyl (Dulcolax) [address] QDAY PRN PRN Reason: Constipation Docusate Sodium (Colace) 100 mg PO BID [facility] Last Admin: 02/28/19 10:05 Dose: 100 mg Documented by: Heparin Sodium (Porcine) (Heparin) 5,000 unit SUB-Q Q12HR [facility] Last Admin: 02/28/19 10:04 Dose: 5,000 unit Documented by: Sodium Chloride (Nacl 0.45% 1000 Ml) 1,000 mls @ 50 mls/hr IV DIRECT [facility] Last Admin: 02/28/19 04:35 Dose: 50 mls/hr Documented by: Magnesium Hydroxide (Milk Of Magnesia) 30 ml PO Q4H PRN PRN Reason: Constipation Metoclopramide HCl (Reglan) 10 mg PO Q6H PRN PRN Reason: Nausea And Vomiting Ondansetron HCl (Zofran) 4 mg IV Q8H PRN PRN Reason: Nausea And Vomiting Prasugrel (Effient) 10 mg PO QDAY [facility] Last Admin: 02/28/19 12:08 Dose: 10 mg Documented by: Pravastatin Sodium (Pravachol) 40 mg PO QHS [facility] Last Admin: 02/27/19 23:24 Dose: 40 mg Documented by: Promethazine HCl (Phenergan) [address] Q6H PRN PRN Reason: Nausea And Vomiting Ranolazine (Ranexa Er) 500 mg PO DAILY [facility] Last Admin: 02/28/19 12:08 Dose: 500 mg Documented by: Sodium Chloride (Sodium Chloride Flush Syringe 10 Ml) 10 ml IV PRN PRN PRN Reason: LINE FLUSH Physical Examination Vital Signs Temp Pulse Resp BP Pulse Ox 97.4 F L 66 16 118/59 100 02/27/19 14:10 02/27/19 14:10 02/27/19 14:10 02/27/19 14:10 02/27/19 14:10 General appearance: no acute distress HEENT: Positive: PERRL Neck: Positive: trachea midline Cardiac: Positive: Reg Rate and Rhythm Lungs: Positive: Normal Breath Sounds Neuro: Positive: Grossly Intact Results 02/27/19 14:58 02/27/19 14:58 Cardiac Enzymes 02/27/19 02/28/19 02/28/19 Range/Units 14:58 02:09 08:03 AST 20 (5-40) units/L CK-MB (CK-2) 3.3 3.1 (0.0-4.0) ng/mL Coagulation 02/27/19 Range/Units 14:58 PT 13.0 (12.2-14.9) Sec. INR 0.99 (0.87-1.13) APTT 27.6 (24.2-36.6) Sec. Lipids 02/28/19 Range/Units 02:09 Triglycerides 229 H (2-149) mg/dL Cholesterol 114 (50-199) mg/dL HDL Cholesterol 32 L (40-59) mg/dL Cholesterol/HDL Ratio 3.56 % CBC 02/27/19 Range/Units 14:58 WBC 9.6 (4.5-11.0) K/mm3 RBC 4.09 (3.65-5.03) M/mm3 Hgb 13.2 (11.8-15.2) gm/dl Hct 38.1 (35.5-45.6) % Plt Count 164 (140-440) K/mm3 Lymph # 1.0 L (1.2-5.4) K/mm3 [place] # 0.7 (0.0-0.8) K/mm3 Eos # 0.2 (0.0-0.4) K/mm3 Baso # 0.1 (0.0-0.1) K/mm3 Comprehensive Metabolic Panel 02/27/19 Range/Units 14:58 Sodium 141 (137-145) mmol/L Potassium 4.3 (3.6-5.0) mmol/L Chloride 103.5 (98-107) mmol/L Carbon Dioxide 24 (22-30) mmol/L BUN 25 H (9-20) mg/dL Creatinine 1.4 (0.8-1.5) mg/dL Glucose 129 H (75-100) mg/dL Calcium 9.5 (8.4-10.2) mg/dL AST 20 (5-40) units/L ALT 19 (7-56) units/L Alkaline Phosphatase 51 (35-129) units/L Total Protein 6.5 (6.3-8.2) g/dL Albumin 4.4 (3.9-5) g/dL Assessment and Plan Syncope chest CTA: no evidence of PE Hx of CAD with prior CABG normal perfusion MPI 07/2018. normal LVEF by echo this admission. Hypertension Hyperlipidemia
--- NOTE | 2019-02-28 14:38 | Discharge Summary ---
Providers - Providers Date of Admission: 02/27/19 20:04 Date of discharge: 02/28/19 Attending physician: DIONE GONZALES 02/27/19 15:40 Consult to Physician [CONS] Stat Comment: Consulting Provider: RIGO LEWIS Physician Instructions: Reason For Exam: syncop 02/27/19 20:03 Consult to Physician [CONS] Routine Comment: PER DR GONZALES Consulting Provider: JD CARRION Physician Instructions: Reason For Exam: ??syncope 02/27/19 20:04 Consult to Dietitian/Nutrition [CONS] Routine Physician Instructions: Reason For Exam: Reason for Consult: Nutrition Recommendations Reason for Consult: Diet education Occupational Therapy Evaluate and Treat [CONS] Routine Comment: Reason For Exam: Neuro deficits Physical Therapy Evaluation and Treat [CONS] Routine Comment: Reason For Exam: Neuro deficits Primary care physician: ALCIRA LARRY MD Hospitalization Condition: Stable Hospital course: Discharge diagnosis: Syncope, likely vasovagal -CT Head negative -ordered MRI brain Bilateral carotid Doppler and Echo pending -placed On ASA and statin, monitored orthostatic vitals -Neurology consulted -Cardiology consulted - need event monitor for 30 days outpt Hypotension -Likely due to dehydration -BUN 25, CR 1.4 -BP on presentation 89/40 -Responsive to fluid resuscitation -Hold all antihypertensive meds for now Elevated D-Dimer -326.09 -CT angio Chest negative for PE CAD -S/p stent x2 (2014) - Hx CABG -Follows Dr. Rigo Lewis with [facility] as outpatient -Consult placed to [facility] DVT PPX -on Heparin Disposition: DC-01 TO HOME OR SELFCARE Time spent for discharge: 34 minutes Core Measure Documentation - Palliative Care Palliative Care/ Comfort Measures: Not Applicable - Core Measures Any of the following diagnoses?: history only Exam - Constitutional Vitals: Temp Pulse Resp BP Pulse Ox 98.0 F 71 18 124/70 95 02/28/19 09:52 02/28/19 09:52 02/28/19 09:52 02/28/19 09:52 02/28/19 09:52 General appearance: Present: no acute distress, well-nourished - EENT Eyes: Present: PERRL ENT: hearing intact, clear oral mucosa - Neck Neck: Present: supple, normal ROM - Respiratory Respiratory effort: normal Respiratory: bilateral: CTA - Cardiovascular Heart Sounds: Present: S1 & S2. Absent: rub, click - Extremities Extremities: pulses symmetrical, No edema Peripheral Pulses: within normal limits - Abdominal General gastrointestinal: Present: soft, non-tender, non-distended, normal bowel sounds - Integumentary Integumentary: Present: clear, warm, dry - Musculoskeletal Musculoskeletal: gait normal, strength equal bilaterally - Psychiatric Psychiatric: appropriate mood/affect, intact judgment & insight - Neurologic Neurologic: CNII-XII intact, moves all extremities Plan Activity: fall precautions Weight Bearing Status: Non-Weight Bearing Diet: low fat, low salt Additional Instructions: Event monitor for 30 days as outpt Follow up with: PRIMARY CAREMD [Referring] - 3-5 Days RIGO LEWIS MD [Staff Physician] - 7 Days
--- NOTE | 2019-02-28 19:40 | Magnetic Resonance Report ---
MRI BRAIN WITHOUT CONTRAST INDICATION / CLINICAL INFORMATION: syncope. TECHNIQUE: Multiplanar, multisequence MR images of the brain were obtained. COMPARISON: None available. FINDINGS: BRAIN / INTRACRANIAL CONTENTS: On the FLAIR sequences, there are scattered hyperintense foci involvin g the cerebral white matter most consistent with microvascular angiopathy. The diffusion imaging reve als no evidence of acute infarction. There is mild cerebral atrophy commensurate with age. The ventri cular system is correspondingly appropriate in size and configuration. CRANIOCERVICAL JUNCTION: No significant abnormality. VASCULAR FLOW-VOIDS: No significant abnormality. ORBITS: No significant abnormality of visualized orbits. SINUSES / MASTOIDS: There is mild mucosal thickening within the ethmoid and inferior maxillary sinuse s. The mastoid air cells are pneumatized. ADDITIONAL FINDINGS: None. IMPRESSION: 1. 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 Signer Name: Oral Agarwal MD Signed: 02/28/2019 7:36 PM Workstation Name: [id number]
== END 2019-02-28 17:20 | disposition home or self-care (01) ==
LOC: ED 13:37 → 4A 20:04
PROVIDERS: ADMIT Internal Medicine; ATTEND Internal Medicine
DX: R55 Syncope and collapse (principal); I11.0 Hypertensive heart disease with heart failure; I50.9 Heart failure, unspecified; I25.10 Atherosclerotic heart disease of native coronary artery without angina pectoris; E78.5 Hyperlipidemia, unspecified; I95.9 Hypotension, unspecified; R74.8 Abnormal levels of other serum enzymes; S05.31XA Ocular laceration without prolapse or loss of intraocular tissue, right eye, initial encounter; S40.812A Abrasion of left upper arm, initial encounter; E86.0 Dehydration; M19.90 Unspecified osteoarthritis, unspecified site; J44.9 Chronic obstructive pulmonary disease, unspecified; K21.9 Gastro-esophageal reflux disease without esophagitis; Z95.1 Presence of aortocoronary bypass graft; Z90.49 Acquired absence of other specified parts of digestive tract; Z23 Encounter for immunization; Z79.82 Long term (current) use of aspirin; X58.XXXA Exposure to other specified factors, initial encounter; Y93.89 Activity, other specified; Y92.59 Other trade areas as the place of occurrence of the external cause; Y99.9 Unspecified external cause status
CPT/HCPCS: 36415; 70450; 70551; 71275; 73140; 80053; 80061; 81001; 82550; 82553; 82962; 83735; 84443; 84484; 85025; 85379; 85610; 85730; 90471; 90715; 93005; 93010; 93306; 93880; 96360; 96361; 96372; 97162; 99284; A9270; G0378; J1644; J7030; Q9967; 80320; G0480